=== PATIENT | male | born 1965 | race Hispanic/Latino ===

== ENCOUNTER 2020-06-08 10:47 | Emergency (ER) | payer MEDICARE, OTHER ==
[~2020-06-08] VITALS: Ht 165.1 cm; Wt 72.6 kg
[~2020-06-08 10:47] MED LIST: HYDROXYZINE PAM50 MG PO; TYLENOL325 MG PO; ZYPREXA20 MG PO; ZYRTEC10 M3 PO
== END 2020-06-08 17:07 | disposition short-term general hospital (02) ==
LOC: ED 10:47
DX: F21 Schizotypal disorder (principal); Z20.822 Contact with and (suspected) exposure to COVID-19; Z79.899 Other long term (current) drug therapy
CPT/HCPCS: 80053; 80176; 81001; 84439; 84443; 85025; 99284; C9803; U0003